=== PATIENT | male | born 1990 | race Caucasian/White ===

== ENCOUNTER 2020-04-13 13:37 | Emergency (ER) | payer OTHER ==
[2020-04-13 17:35] LABS: BASOPHIL 0.7 % (0-2); EOSINOPHIL 1.1 % (0-5); HCT 49.8 % (42.0-52.0); HGB 15.8 g/dl (13.2-18.0); LYMPHOCYTE 22.5 % (15-48); MCH 28.8 pg (25.0-31.0); MCHC 31.7 g/dL (32.0-36.0); MCV 90.7 fL (78.0-100.0); MONOCYTE 4.4 % (0-12); MPV 10.9 fL (6.0-9.5); NEUTROPHIL 70.9 % (41-80); NRBC 0; PLT 311 K/uL (150-400); RBC 5.49 M/uL (4.70-6.00); RDW 12.4 % (11.5-14.0); WBC 10.2 K/uL (4.0-10.5)
[2020-04-13 18:01] LABS: ALBUMIN 4.2 g/dL (3.4-5.0); BILIRUBIN - TOTAL 0.5 mg/dL (0.2-1.0); BUN/CREAT RATIO (CALC) 6.7 RATIO; CREATININE 1.05 mg/dL (0.67-1.17); GLOBULIN (CALCULATION) 3.5 g/dL; POTASSIUM 4.2 mmol/L (3.5-5.1); TOTAL PROTEIN 7.7 g/dL (6.4-8.2)
== END 2020-04-13 18:25 | disposition home or self-care (01) ==
LOC: FER 13:37
PROVIDERS: Nurse Practitioner Family
DX: B34.9 Viral infection, unspecified (principal); J45.909 Unspecified asthma, uncomplicated; F17.210 Nicotine dependence, cigarettes, uncomplicated; Z88.0 Allergy status to penicillin
CPT/HCPCS: 36415; 71046; 80053; 85025

== ENCOUNTER 2020-04-21 21:17 | Emergency (ER) | payer OTHER | END 2020-04-21 23:46 | disposition home or self-care (01) | LOC: FER 21:17 | DX: S63.641A Sprain of metacarpophalangeal joint of right thumb, initial encounter (principal); J45.909 Unspecified asthma, uncomplicated; F17.210 Nicotine dependence, cigarettes, uncomplicated; Z88.0 Allergy status to penicillin; X58.XXXA Exposure to other specified factors, initial encounter; Y92.009 Unspecified place in unspecified non-institutional (private) residence as the place of occurrence of the external cause | CPT/HCPCS: 73140 ==

== ENCOUNTER 2020-10-07 19:57 | Emergency (ER) | payer SELFPAY ==
[2020-10-08] MEDS ORDERED: PREDNISONE 20MG20 MG PO (00:27)
[2020-10-08] MEDS ORDERED: PERCOCET 5-3251 EACH PO (00:27)
[2020-10-08] MEDS ORDERED: IBUPROFEN800 MG PO (00:27)
== END 2020-10-08 00:55 | disposition home or self-care (01) ==
LOC: FER 19:57
DX: M25.532 Pain in left wrist (principal); J45.909 Unspecified asthma, uncomplicated; F17.200 Nicotine dependence, unspecified, uncomplicated; Z88.0 Allergy status to penicillin
CPT/HCPCS: 73100; J1885; J7512

== ENCOUNTER 2020-11-10 14:30 | Emergency (ER) | payer SELFPAY ==
[~2020-11-10 14:30] MED LIST: IBUPROFEN800 MG PO; PERCOCET 5-3251 EACH PO; PREDNISONE 20MG20 MG PO
[2020-11-10] MEDS ORDERED: CLEOCIN300 MG PO (15:34)
== END 2020-11-10 15:50 | disposition home or self-care (01) ==
LOC: FER 14:30
DX: K04.7 Periapical abscess without sinus (principal); F17.210 Nicotine dependence, cigarettes, uncomplicated; Z23 Encounter for immunization; Z88.0 Allergy status to penicillin
CPT/HCPCS: 90471; 90715; 99283; J1885; Q0163